=== PATIENT | female | born 1945 | race Caucasian/White ===

== ENCOUNTER 2018-03-16 09:45 | Observation (INO) | payer OTHER ==
--- NOTE | 2018-03-08 21:20 | GHP ---
[f rep st] PREOP HISTORY AND PHYSICAL CURRENT COMPLAINT: Left knee pain. HISTORY OF PRESENT ILLNESS: The patient is a 72-year-old female with a long history of left knee pain worsening with use and with time despite multiple conservative measures. X-ray exam reveals osteoarthritic changes. She wishes to have surgery in order to resolve the problem. ALLERGIES: She is allergic to codeine. CURRENT MEDICATIONS: Include Cimzia, methotrexate, Valtrex, and warfarin. PRIOR MEDICAL PROBLEMS: Include arthritis, cancer, heart disease, and rheumatoid arthritis. PRIOR SURGERIES: Include heart valve, left kneecap, and other x2. SOCIAL HISTORY: She has never been a drinker. She is a social drinker. PHYSICAL EXAM: HEENT: Pupils are equal, round, reactive to light. CHEST: Clear to auscultation. HEART: Regular rate and rhythm. ABDOMEN: Soft and nontender. MUSCULOSKELETAL: Left knee reveals osteophytic spurring noted, particularly lateral compartment. X-ray exam revealed significant osteoarthritic changes. ASSESSMENT AND PLAN: Patient is status post left knee osteoarthritis. Plan is to take her to the operating room to undergo a left total knee arthroplasty. /[id number]/MODL MTDD
--- NOTE | 2018-03-23 16:19 | ECHO ---
[email or web address] [place] [id number] Main: [phone] Fax: Transesophageal Echocardiography Name: CAMERON EDGAR MR#: [id number] Study Date: 03/23/2018 Study Time: 10:20 AM Date of : 1945 Age: 72 year(s) Height: ( ) Weight: ( ) BSA: Gender: Female Examination: YULI Indication: MECHANICAL AVR; Image Quality: Contrast: Requested by: Mary Pickett Heart Rate: Rhythm: BP: 116 mmHg/63 mmHg Procedure Staff Director Funds Development: Jordana Banda [facility] Reading Physician: Satish Reynaga MD Requesting Provider: YULI Exam Details Conclusions: Normal size left ventricle. Concentric LV hypertrophy. Mildly reduced systolic LV function. Apical hypokinesis. Moderate to severe mitral regurgitation. The anterior mitral leaflet is moderately thickened, the posterior leaflet appears immobile, and thickened. There is moderate to severe posterior annular calcification. Mean gradient across the MV is 8mmHg consistent moderate mitral stenosis. . Mean aortic valve gradient 23. No prosthesis regurgitation. Mechanical AVR not well visualized. Measurements: Chambers Valvular Assessment AV/MV Valvular Assessment TV/PV Normal Normal Normal Name Value Range Name Value Range Name Value Range LVOTd 2.3 cm 2.3 cm mm AV Vmax: 3.12 m/s (1 m/s-1.7 m/s) AV maxP mmHg ( - ) AV meanP mmHg ( - ) PABLITO (VTI): 1.0 cm ( - ) MV meanP mmHg ( - ) MV PHT: 0.093 s ( - ) MVA (Vmax): 1.3 m/s ( - ) MVA (PHT): 2.4 s ( - ) Patient: CAMERON EDGAR Study Date: 03/23/2018 Page 1 of 2 10:20 AM Additional Measurements: Valvular Assessment AV/MV Name Value MV VTI: 46.10 cm Findings: Left Ventricle: Normal size left ventricle. Concentric LV hypertrophy. Mildly reduced systolic LV function. Apical hypokinesis. Mitral Valve: Moderate to severe mitral regurgitation. The anterior mitral leaflet is moderately thickened, the posterior leaflet appears immobile, and thickened. There is moderate to severe posterior annular calcification. Mean gradient across the MV is 8mmHg consistent moderate mitral stenosis. . Aortic Valve: Mean aortic valve gradient 23. No prosthesis regurgitation. Mechanical AVR not well visualized. l1n (No Signature Object) Patient: CAMERON EDGAR Study Date: 03/23/2018 Page 2 of 2 10:20 AM [id number]
[2018-05-04] MEDS ORDERED: ROPIVACAINE 0.2% 80 MG, EPINEPHrine 0.2 MG, KETOROLAC TROMETHAMINE 30 MG, morphINE 10 M... IU ONE (06:00)
[2018-05-04] MEDS ORDERED: TRANEXAMIC ACID 3,000 MG in NS (SYRINGE) 50 ML IRR ONE (06:00)
[2018-05-04] MEDS ORDERED: PREGABALIN 150 MG CAP PO ONE (10:38)
[2018-05-04] MEDS ORDERED: ceFAZolin 2 GM/SWFI 2 GM/20 ML SYR IVP ONE (10:38)
[2018-05-04] MEDS ORDERED: ACETAMINOPHEN 500 MG TAB PO ONE (10:38)
[2018-05-04] MEDS ORDERED: LR 1,000 ML IV ONE (10:40)
[2018-05-04] MEDS ORDERED: CEFAZOLIN 2 GM/DEXTROSE/100 ML BAG IV ONE (10:58)
[2018-05-04 11:30] LABS: INR 1.25 (0.83-1.16); PROTIME(PATIENT) 15.9 SEC (12.0-15.0)
[2018-05-04] MEDS ORDERED: BUPIVACAINE/EPI 0.5% 30 ML SDV ONE (12:21)
[2018-05-04] MEDS ORDERED: BACITRACIN 50,000 UNITS/10 ML SYR IRR ONE (12:22)
[2018-05-04] MEDS ORDERED: THROMBIN (BOVINE) 5,000 UNIT VIAL TP ONE (12:22)
[2018-05-04] MEDS ORDERED: TRANEXAMIC ACID 3,000 MG/50 ML BAG IRR ONE (12:22)
[2018-05-04] MEDS ORDERED: POLYMYXIN B SULFATE 500,000 UNIT/10 ML SYR IRR ONE (12:22)
[2018-05-04] MEDS ORDERED: CALCIUM CHLORIDE 1 GM/10 ML INJ ONE (12:22)
--- NOTE | 2018-05-04 15:14 | PDGENHP ---
History & Physical Chief Complaint: knee pain History of Present Illness: 72 y/o female with knee pain Relevant Physical Exam: rrr. cta Cardiorespiratory Assessment: rrr cta
[2018-05-04] MEDS ORDERED: MIDAZOLAM 2 MG/2 ML VIAL IVP ONE (15:33)
--- NOTE | 2018-05-04 15:37 | PDANEPAE ---
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 CAD WITH STENT PLACED IN 2011. 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 APPY. LEFT PATELLA REPAIR. CARDIAC STENT 2011 ANE Review of Systems Review of Systems: - Exercise capacity METS (RN): 4 METS ANE Patient History - Allergies Allergies/Adverse Reactions: codeine [Codeine] Allergy (Verified 02/26/18 16:39) nausea latex Allergy (Verified 02/26/18 16:39) FEELS LIKE SKIN IS BURNING - Home Medications Home Medications: Warfarin Sodium [Coumadin 5MG (RX)] 5 mg PO DAILY16 09/09/12 [Last Taken ] Certolizumab Pegol [CIMZIA] 400 mg SQ Q14D 02/26/18 [Last Taken 04/27/18] Cholecalciferol Vit D3 [Vitamin D3 (*)] 5,000 units PO DAILY 02/26/18 [Last Taken 04/29/18] Diclofenac Sodium 1% [Voltaren Gel (*)] 3 gm TP DAILY PRN 02/26/18 [Last Taken 04/28/18] Folic Acid [Folic Acid 1 MG (*)] 1 mg PO DAILY 02/26/18 [Last Taken 04/28/18] Methotrexate Sodium [Rheumatrex 2.5 mg (RX)] 10 mg PO FR 02/26/18 [Last Taken ] Naproxen Sodium [Aleve 220 MG (*)] 220 mg PO BID PRN 02/26/18 [Last Taken ] valACYclovir [Valtrex (*)] 500 mg PO DAILY 02/26/18 [Last Taken 04/29/18] Enoxaparin [Lovenox 80 MG (*)] 80 mg SQ BID 05/04/18 [Last Taken 05/03/18] - NPO status NPO Since - Liquids (Date): 05/04/18 NPO Since - Liquids (Time): 00:01 NPO Since - Solids (Date): 05/03/18 NPO Since - Solids (Time): 20:00 - Smoking Hx Smoking Status: Never smoked - Family Anes Hx Family Hx Anesthesia Complications: NONE ANE Labs/Vital Signs - Vital Signs Blood Pressure: 106/81 Heart Rate: 84 Respiratory Rate: 16 O2 Sat (%): 94 Height: 165.1 cm Weight: 81.647 kg ANE Physical Exam - Airway Neck exam: decreased ROM Mallampati Score: Class 3 Mouth exam: normal dental/mouth exam - Pulmonary Pulmonary: no respiratory distress - Cardiovascular Cardiovascular: regular rate and rhythym - ASA Status ASA Status: III ANE Anesthesia Plan Anesthesia Plan: GA w LMA, spinal Regional Anesthesia: adductor canal FNB
[2018-05-04] MEDS ORDERED: fentaNYL 100 MCG/2 ML INJ ONE (16:00)
[2018-05-04] MEDS ORDERED: PROPOFOL/EMULSION 500 MG/50 ML BOTTLE IV ONE (16:00)
[2018-05-04] MEDS ORDERED: fentaNYL 100 MCG/2 ML INJ IVP PRN (17:15)
[2018-05-04] MEDS ORDERED: PROMETHAZINE HCL 25 MG/ML INJ IVP PRN ×2 (17:15→18:26)
[2018-05-04] MEDS ORDERED: HYDROmorphONE/DILAUDID 1 MG/ML INJ IVP PRN (17:15)
[2018-05-04] MEDS ORDERED: NALOXONE HCL 0.4 MG/ML INJ IVP PRN (17:15)
[2018-05-04] MEDS ORDERED: ONDANSETRON 4 MG/2 ML VIAL IVP PRN ×2 (17:15→18:26)
[2018-05-04] MEDS ORDERED: ePHEDrine SULFATE 25 MG/5 ML SYR ONE (17:47)
[2018-05-04] MEDS ORDERED: ROPIVACAINE HCL 150 MG/30 ML INJ ONE (17:47)
[2018-05-04] MEDS ORDERED: DEXAMETHASONE 4 MG/ML VIAL ONE (17:47)
[2018-05-04] MEDS ORDERED: PHENYLEPHRINE HCL 100 MCG/ML SYR ONE (17:47)
[2018-05-04] MEDS ORDERED: ONDANSETRON 4 MG/2 ML VIAL ONE (17:47)
--- NOTE | 2018-05-04 18:24 | POSTOPPROG ---
Post Op Note Date of Operation: 05/04/18 Surgeon: Mary Pickett Automation Control Integrator: coltrain Anesthesia: Epidural, IV Sedation Pre-op Diagnosis: l knee oa Procedure: l tkr Inf/Abcess present in the surg proc area at time of surgery?: No Depth: Deep Incisional (Fascial) EBL: 100-500
[2018-05-04] MEDS ORDERED: DICLOFENAC SODIUM 1% 100 GM GEL TP PRN (18:25)
[2018-05-04] MEDS ORDERED: LACTULOSE 20 GM/30 ML UDCUP PO PRN (18:26)
[2018-05-04] MEDS ORDERED: METOCLOPRAMIDE 10 MG/2 ML VIAL IVP PRN (18:26)
[2018-05-04] MEDS ORDERED: oxyCODONE IR 5 MG TAB PO PRN (18:26)
[2018-05-04] MEDS ORDERED: MAGNESIUM HYDROXIDE 30 ML UDCUP PO PRN (18:26)
[2018-05-04] MEDS ORDERED: TAPENTADOL HCL 50 MG TAB PO PRN (18:26)
[2018-05-04] MEDS ORDERED: ONDANSETRON DISINTEGRATING 4 MG TAB PO PRN (18:26)
[2018-05-04] MEDS ORDERED: BISACODYL 10 MG SUPP PR PRN (18:26)
[2018-05-04] MEDS ORDERED: DIPHENOXYLATE/ATROPINE LOMOTIL 1 TAB PO PRN (18:26)
[2018-05-04] MEDS ORDERED: CYCLOBENZAPRINE 10 MG TAB PO PRN (18:26)
[2018-05-04] MEDS ORDERED: PROMETHAZINE HCL 25 MG SUPPR PR PRN (18:26)
[2018-05-04] MEDS ORDERED: TEMAZEPAM 15 MG CAP PO PRN (18:26)
[2018-05-04] MEDS ORDERED: diphenhydrAMINE 25 MG CAP PO PRN (18:26)
[2018-05-04] MEDS ORDERED: POLYETHYLENE GLYCOL 3350 17 GM PKT PO PRN (18:26)
[2018-05-04] MEDS ORDERED: CERTOLIZUMAB PEGOL 400 MG SQ SCH (18:30)
--- NOTE | 2018-05-04 18:48 | POSTANESTH ---
Post Anesthetic Evaluation Cardiovascular Status: Normal, Stable Respiratory Status: Normal, Stable Level of Consciousness/Mental Status: Can Participate in Eval Pain Control: Adequate, Prn Tx Ordered Nausea/Vomiting Control: Adequate, Prn Tx Ordered Complications Possibly Related to Anesthesia: None Noted
--- NOTE | 2018-05-04 19:38 | GOP ---
[f rep st] OPERATIVE REPORT DATE OF OPERATION: 05/04/2018 SURGEON: Mary Pickett MD CORK TILE FLOOR LAYER: Brandon Diana, CSFA, LSA, whose presence was medically necessary. ANESTHESIA: By epidural plus IV sedation and adductor canal block per surgeon's request. PREOPERATIVE DIAGNOSIS: Left knee osteoarthritis. POSTOPERATIVE DIAGNOSIS: Left knee osteoarthritis. PROCEDURE PERFORMED: Left total knee arthroplasty. FINDINGS: INDICATIONS: This is a 72-year-old female with a several-year history of left knee pain worsening wi th use and with time, despite a patellectomy had been performed in the past. X-ray exam reveals bone -on-bone osteoarthritic changes. She wishes to have surgery in order to resolve the problem. DESCRIPTION OF PROCEDURE: The patient was brought to the operating room after the left side had been identified as the correct side by the patient, nurse, and physician once in the operating room. She was given an epidural nerve block and then placed under IV sedation. She had a tourniquet placed ar ound the upper portion of the left thigh and then the left lower extremity sterilely prepped and drap ed in the usual fashion using GSI solution. Once prepped and draped, the limb was exsanguinated and tourniquet inflated to 250 mmHg. A linear incision was made on the anterior portion of the knee 1 valle ndbreadth above and below the patella with sharp dissection, carried down through the skin and subcut aneous layers with bleeding controlled using electrocautery. The extensor mechanism was palpated and as best as possible, the medial edge of the patellar tendon and quadriceps tendon were able to be fo und, and a parapatellar-type incision was done with the patellar tendon and quad tendon brought to th e side since there was no patella. She was noted to have severe osteoarthritic changes in all 3 comp artments. The ACL as well as the medial and lateral meniscus were removed. A drill hole was made 1 cm anterior to the intercondylar notch with an intramedullary guide placed within the femur, set to r emove 12 mm of bone secondary to a significant contracture she had in the knee. Once pinned into araceli ce, the guide was removed. An oscillating saw was used to remove the distal end of the femur. A siz ing guide was then placed on the cut surface of the femur, noting a size 5 prosthetic seemed to fit b est. Therefore, drill holes were made and a size 5, 4-in-1 cutting block was put into place with the anterior, posterior, and chamfer cuts made. The size 5 trial was put into place and noted to fit se curely and the leg was able to achieve full extension, suggesting an adequate amount of bone had been removed. Lug holes were drilled for the femoral component. The femoral trial was removed. The kne e was brought to maximal flexion. An external tibial guide was put into place, set at neutral varus- valgus and slight posterior slope. Once in position, it was set to remove 2 mm of bone from the lowe st side of the tibia which was the medial side. Once put into position, a drop tesfaye was used in order to ensure proper positioning and a locking pin placed in the cutting tray. The oscillating saw was used to remove the proximal portion of the tibia. Femoral trial, tibial trial, and trial liner were put into place. The knee was able to achieve full extension, suggesting an adequate amount of bone h ad been removed. Pins were removed from the tibia. The knee was brought back to maximal flexion. M ultiple sizes were tried on the tibia and then a size 4 seemed to fit best. It was pinned into place in slight external rotation and a keel punch passed through the trial. All trials were removed. Th e cut surfaces of the bone were then thoroughly irrigated with an antibiotic solution using pulsatile lavage while cement was being mixed. Once cement was doughy, it was placed on the proximal portion of the tibia with a size 4 Triathlon tibial baseplate from [place] put into place and excess cement r emoved using Hershey elevator. Cement was then placed on the posterior skids of the femoral component with cement placed on the distal and anterior portions of the femur with a size 5 left cruciate-retai rose mary Triathlon component from [place] put into place and excess cement removed using Hershey elevator. A trial liner was put into the tibial tray and the knee brought to full extension in order to pressu rize cement. Once cement had become hardened, multiple trials were placed in the tibial tray and not ed a 9 mm liner fit best. Therefore, a size 4, 9 mm polyethylene insert was placed in the tibial tra y. Once completed, the wound was thoroughly irrigated with tranexamic acid. A joint cocktail was in jected into the posterior capsule along the periosteum of the femur and tibia and in the extensor mec hanism. The tourniquet was released at 60 minutes. The wound was then closed in layers to include 0 Vicryl suture for the extensor mechanism with plasma gel placed intra-articularly, 0 Vicryl and 2-0 Vicryl suture used for the subcutaneous tissue with plasma gel placed external to the extensor mechan ism, and a 3-0 V-Loc suture in a running subcuticular stitch for the skin. 30 mL of Marcaine was inf used around the actual incision itself. The wound was dressed with Steri-Strips, Xeroform, 4 x 4's, wrapped in Kerlix. The leg was completely undraped in the operating room, the tourniquet removed fro m the thigh, and an Bhupendra wrap placed around the knee. The patient was then transferred onto a stretch er and sent to the recovery room in good condition. TOURNIQUET TIME: 60 minutes. /[id number]/MODL
[2018-05-04] MEDS: ENOXAPARIN 80 MG/0.8 ML SYR SC SCH (21:52)
[2018-05-04] MEDS: FAMOTIDINE 20 MG TAB PO SCH (22:49)
[2018-05-04] MEDS: SENNOSIDES/DOCUSATE SODIUM TAB PO SCH (22:50)
[2018-05-04] MEDS: ACETAMINOPHEN 325 MG TAB PO SCH (23:57)
[2018-05-04] MEDS: LR 1,000 ML IV SCH (23:57)
[2018-05-04] MEDS: ceFAZolin 2 GM/DEXTROSE 100 ML IV SCH (23:57)
[2018-05-04] MEDS: KETOROLAC 15 MG/1 ML SDV IVP SCH (23:57)
[2018-05-05] MEDS: traMADol 50 MG TAB PO SCH ×3 (00:04→12:34)
[2018-05-05] MEDS: ACETAMINOPHEN 325 MG TAB PO SCH ×2 (05:39→12:34)
[2018-05-05] MEDS: KETOROLAC 15 MG/1 ML SDV IVP SCH ×2 (05:39→12:34)
[2018-05-05] MEDS: ceFAZolin 2 GM/DEXTROSE 100 ML IV SCH (08:56)
[2018-05-05] MEDS: LR 1,000 ML IV SCH (08:58)
[2018-05-05] MEDS: ENOXAPARIN 80 MG/0.8 ML SYR SC SCH (08:59)
[2018-05-05] MEDS: SENNOSIDES/DOCUSATE SODIUM TAB PO SCH (09:00)
[2018-05-05] MEDS ORDERED: valACYclovir 500 MG TAB PO SCH (09:00)
[2018-05-05] MEDS: FAMOTIDINE 20 MG TAB PO SCH (09:00)
[2018-05-05] MEDS ORDERED: FOLIC ACID 1 MG TAB PO SCH (09:00)
[2018-05-05] MEDS ORDERED: CHOLECALCIFEROL VIT D3 1,000 UNITS TAB PO SCH (09:00)
[2018-05-05 11:46] VITALS: BP 108/67
--- NOTE | 2018-05-05 12:37 | PDIAF ---
- Diagnosis Diagnosis: left knee total knee arthroplasty Code Status: Full Code - Medication Management Discharge Medications: Medications to Continue on Transfer Warfarin Sodium [Coumadin 5MG (*)] 5 mg PO DAILY16 09/09/12 [Last Taken 04/29/18 ] Certolizumab Pegol [CIMZIA] 400 mg SQ Q14D 02/26/18 [Last Taken 04/27/18] Cholecalciferol Vit D3 [Vitamin D3 (*)] 5,000 units PO DAILY 02/26/18 [Last Taken 04/29/18] Folic Acid [Folic Acid 1 MG (*)] 1 mg PO DAILY 02/26/18 [Last Taken 04/28/18] Methotrexate Sodium [Rheumatrex] 10 mg PO FR 02/26/18 [Last Taken 04/29/18] valACYclovir [Valtrex (*)] 500 mg PO DAILY 02/26/18 [Last Taken 04/29/18] Enoxaparin [Lovenox 80 MG (*)] 80 mg SQ BID 05/04/18 [Last Taken 05/03/18] Acetaminophen [Tylenol 325mg (*)] 650 mg PO Q6HRS #60 tab 05/05/18 [Last Taken Unknown] oxyCODONE IR [Oxycodone Ir (*)] 5 - 10 mg PO Q3HRS PRN #30 tab 05/05/18 [Last Taken Unknown] traMADol [Ultram 50 mg (*)] 50 mg PO Q6HRS 60 Days tab 05/05/18 [Last Taken Unknown] Discharge Medications: Refer to the Discharge Home Medication list for PRN reason. - Orders Services needed: Home Care, Physical Therapy, Occupational Therapy Home Care Face to Face: I certify that this patient was under my care and that I had the required [id number] encounter meeting the encounter requirements on the discharge day. My findings support the fact that the patient is homebound as defined in Home Care Face to Face Continued: CMS Chapter 7 Medicare Benefits Manual 30.1.1 , The condition of the patient is such that there exists a normal inability to leave home and consequently, leaving home would require a considerable and taxing effort. Diet Recommendation: no restrictions on diet Diet Texture: Regular Texture Diet Activity/Weight Bearing Restrictions: WBAT Additional Instructions: Naina has prescriptions in chart. She will follow up in 7-10 days for repeat evaluation and dressing removal as well as initiation of outpatient physical therapy. WBAT LLE. - Follow Up Care Current Providers and Referrals: NONE *PRIMARY CARE P,. [Primary Care Provider] -
--- NOTE | 2018-05-05 14:00 | ASDISCHSUM ---
Discharge Information Plan Status:Home with Home Health Medically Cleared to Leave:05/05/2018 Discharge Date:05/05/2018 D/C Disposition:Home Health Service ADT D/C Disposition:Home, Routine, Self-Care Projected Discharge Date:05/05/2018 11:00 AM Transportation at D/C:Family Discharge Delay Reason: Follow-Up Date:05/05/2018 11:00 AM Discharge Slot: Final Diagnosis: Placement Information Referral Type:*Home Health Care Services Referral ID:[id number] Provider Name:[facility] Address 1:[address] [facility] [address] Address 2: City:[place] Selection Factors: State:[place] Patient Contact Information Contact Name:SAPPHIRE Relationship:Daughter Address:[address] [address] Work Phone: City:[facility] Phone: State/Zip Code:[place] [address] Email: Financial Information Financial Class:Medicare Advantage Plans Primary Plan Desc:[employer] PPO MEDICARE Primary Plan Number:[id number] Secondary Plan Desc: Secondary Plan Number: Assessment Information Intervention Information
--- NOTE | 2018-05-05 14:03 | ASMTDCNOTE ---
Case Management Discharge Discharge Order Complete? Answers: Yes Patient to Obtain Answers: via Family Medications Transportation Arranged Answers: Family/Friends Family Notified Answers: Yes Discharge Comments Notes: Pt is s/p a L TKA. PT recommending home care. Pt has [employer] Medicare - referrals sent via [facility]. [facility] accepted and pt is fine with them. D/C orders/meds sent. Pt's daughter is transporting her home. Date Signed: 05/05/2018 02:03 PM Electronically Signed By:ZHOU Torres
--- NOTE | 2018-05-05 14:04 | ASMTLACE ---
MILADYS Length of stay for Answers: 1 day current admission Acuity / Level of Answers: No Care: Did the patient have an inpatient admission? Comorbidities - select Answers: Congestive heart failure all that apply Coronary Artery Disease Opioid dependence / Chronic pain # of Emergency department Answers: 0 visits in the last 6 months Score: 9 Date Signed: 05/05/2018 02:04 PM Electronically Signed By:ZHOU Torres
[2018-05-05] MEDS ORDERED: WARFARIN SODIUM 5 MG TAB PO SCH (16:00)
--- NOTE | 2018-05-05 16:56 | SOAPPROG ---
SOAP Progress Note Assessment/Plan: Assessment: Naina is POD#1 from LTKA and is doing well with mild pain. She plans to discharge home today PE: Dressing clean and dry NV Intact LLE Calf soft to compression without pain SLR intact Plan: Plan for D/C today Xarelto x10 days post op PT/OT WBAT RLE Follow up in office in 10 days for repeat evaluation Plan: 05/05/18 16:55 Objective: Vital Signs Temp Pulse Resp BP Pulse Ox 36.4 C 94 14 108/67 88 L 05/05/18 11:43 05/05/18 11:43 05/05/18 11:43 05/05/18 11:43 05/05/18 11:43 Laboratory Results 05/05/18 04:40 05/04/18 05/05/18 05/06/18 05:59 05:59 05:59 Intake Total 4150 1725 Output Total 485 400 Balance 3665 1325 PT 15.9 SEC (12.0-15.0) H 05/04/18 11:13 INR 1.25 (0.83-1.16) H 05/04/18 11:13 ICD10 Worksheet Patient Problems: Problems Problem Status Onset Osteoarthritis of left knee Acute - ICD10 Problem Qualifiers (1) Osteoarthritis of left knee
[2018-05-07] MEDS ORDERED: METHOTREXATE 2.5 MG TAB PO SCH (18:25)
--- NOTE | 2018-05-12 12:15 | GDS ---
[f rep st] DISCHARGE SUMMARY CURRENT COMPLAINT: Left knee pain. HISTORY OF PRESENT ILLNESS: The patient is a 72-year-old female with a several-year history of left knee pain worsening with use with time despite multiple conservative measures and a positive patellec tadeo in the past. X-ray exam reveals uhjj-oc-fime osteoarthritic changes to the knee. She wished to have surgery in order to resolve the problem. HOSPITAL COURSE: Patient brought to the operating room on the day of admission where she underwent a left total knee arthroplasty. Postoperatively her pain was able to be kept under control. She was progressed quickly with our physical therapy regimen and was able to be discharged on 05/05/2018, wit h instructions to continue with her physical therapy exercises and return to the office for further e valuation. DISCHARGE DIAGNOSIS: Left knee osteoarthritis. /[id number]/MODL
== END 2018-05-05 14:11 | disposition home health service (06) ==
LOC: EDSTATUS 09:45 → F3N 05-04 10:25
PROVIDERS: ADMIT Orthopaedic Surgery; ATTEND Orthopaedic Surgery
PROC: 0SRD0JZ Replacement of Left Knee Joint with Synthetic Substitute, Open Approach (ICD-10-PCS; principal; 2018-05-04 12:00)
DX: M17.12 Unilateral primary osteoarthritis, left knee (principal); Z95.2 Presence of prosthetic heart valve; I25.810 Atherosclerosis of coronary artery bypass graft(s) without angina pectoris; Z95.5 Presence of coronary angioplasty implant and graft
CPT/HCPCS: 27447; 73560; 88311; 93312; 97116; 97161; 97166; 97530; 97535; C1713; C1776; G0378; G8978; G8979; G8987; G8988; G8989; J0171; J0690; J1100; J1650; J1885; J2250; J2270; J2370; J2405; J2550; J2704; J2795; J3010

== ENCOUNTER 2018-03-23 07:22 | Day surgery (SDC) | payer OTHER ==
[2018-03-23] MEDS ORDERED: diphenhydrAMINE 25 MG CAP PO ONE (07:26)
[2018-03-23] MEDS ORDERED: ASPIRIN EC 325 MG TAB PO ONE (07:26)
[2018-03-23] MEDS ORDERED: FAMOTIDINE 20 MG TAB PO ONE (07:26)
[2018-03-23] MEDS ORDERED: DIAZEPAM 5 MG TAB PO ONE (07:26)
[2018-03-23] MEDS ORDERED: NS 1,000 ML IV ONE (07:26)
--- NOTE | 2018-03-23 07:48 | CPEKG ---
Heart Rate: 90 RR Interval: 667 QRSD Interval: 126 QT Interval: 408 QTC Interval: 500 QRS [place]: 246 T Wave [place]: 55 EKG Severity - ABNORMAL ECG - EKG Impression: Sinus rhythm with frequent PAC, artifact. EKG Impression: NONSPECIFIC IVCD WITH LAD EKG Impression: CONSIDER INFERIOR INFARCT EKG Impression: ANTERIOR INFARCT, OLD Electronically Signed By: Eduardo Coronado 23-Mar-2018 08:43:16
[2018-03-23] MEDS ORDERED: fentaNYL 100 MCG/2 ML INJ ONE (07:59)
[2018-03-23] MEDS ORDERED: MIDAZOLAM 2 MG/2 ML VIAL ONE (07:59)
[2018-03-23 08:15] LABS: PLATELET COUNT 198 10^3/uL (150-400)
[2018-03-23 08:22] LABS: INR 3.27 (0.83-1.16); PROTIME(PATIENT) 33.1 SEC (12.0-15.0)
--- NOTE | 2018-03-23 09:20 | PDPROPOC ---
Sedation Plan of Care Sedation Plan of Care: vital signs stable, mental status noted, patient educated of risks, benefits, alternatives, patient can tolerate sedation ASA Classification: ASA 2 Planned drugs: fentanyl, midazolam Mallampati Score: Class 2 Mallampati Reference Image: Patient passed 3-3-2 rule?: Yes
--- NOTE | 2018-03-23 09:20 | PDHPUP ---
History & Physical Update H&P update statement: This history and physical update is based on an assessment of the patient which was completed after admission or registration (within 24 hours), but prior to the surgery/procedure. H&P update: H&P reviewed & patient examined, no change in patient's condition since H&P completed
--- NOTE | 2018-04-25 11:23 | CPIP ---
[f rep st] INVASIVE CARDIAC PROCEDURE DATE OF PROCEDURE: 03/23/2018 PROCEDURE: Fluoroscopy of aortic valve. FINDINGS: Patient was brought to the cardiac catheterization laboratory for fluoroscopy of her [place] bile[place]let aortic valve. The valve appeared to sit and function normally by fluoroscopy. COMPLICATIONS: None. CONCLUSIONS: Normally functioning bileaflet aortic valve by fluoroscopy. /[id number]/MODL
== END 2018-03-23 12:40 | disposition home or self-care (01) ==
LOC: FCATH 07:22
PROVIDERS: ATTEND Internal Medicine Cardiovascular Disease
DX: I08.0 Rheumatic disorders of both mitral and aortic valves (principal); Z79.01 Long term (current) use of anticoagulants; I25.10 Atherosclerotic heart disease of native coronary artery without angina pectoris; Z95.2 Presence of prosthetic heart valve; Z95.5 Presence of coronary angioplasty implant and graft; M25.562 Pain in left knee
CPT/HCPCS: J2250; J3010